=== PATIENT | male | born 1975 | race Caucasian/White ===

== ENCOUNTER 2019-01-02 15:38 | Outpatient (CLI) | payer OTHER ==
[2019-01-02 16:38] LABS: Hemoglobin 15.5 g/dL (14.0-18.0); Mean Corpuscular HGB CONC 32.9 g/dL (32.0-36.0); Mean Corpuscular Hemoglobin 29.5 pg (27.0-31.0); Mean Corpuscular Volume 89.7 fL (78.0-98.0); Mean Platelet Volume 8.6 fL (7.4-10.4); Platelet Count 210 thou/uL (130-400); RBC Distribution Width 12.3 % (11.5-14.5); Red Blood Cell (RBC) Count 5.25 mill/uL (4.70-6.10); White Blood Cell (WBC) Count 6.1 thou/uL (4.8-10.8)
[2019-01-02 17:05] LABS: Anion Gap 12 mmol/L (10-20); BUN (Urea Nitrogen) 16 mg/dL (8.9-20.6); Calc. Creatinine Clearance 0 mL/min (70-130); Calcium 9.4 mg/dL (7.8-10.44); Carbon Dioxide 26 mmol/L (22-29); Chloride 107 mmol/L (98-107); Estimated GFR-MDRD 71; Glucose 94 mg/dL (70-105); Potassium 4.1 mmol/L (3.5-5.1); Sodium 141 mmol/L (136-145)
== END 2019-01-02 15:39 | disposition home or self-care (01) ==
LOC: LABBT 15:38
PROVIDERS: ATTEND Neurological Surgery
DX: Z01.818 Encounter for other preprocedural examination (principal); M43.16 Spondylolisthesis, lumbar region
CPT/HCPCS: 80048; 85027; 93005; 93010

== ENCOUNTER 2019-01-07 05:56 | Observation (INO) | payer OTHER ==
[2019-01-02 15:54] VITALS: BMI 33.0
[2019-01-07] MEDS ORDERED: Sodium Chloride 0.9% 10 ML ONE (06:32)
[2019-01-07] MEDS ORDERED: Fentanyl 100 MCG/2 ML VIAL ONE ×4 (06:52→10:49)
[2019-01-07] MEDS ORDERED: PACU-Morphine 4MG/ML VIAL SLOW IVP PRN (09:07)
[2019-01-07] MEDS ORDERED: Ketorolac Tromethamine 30 MG/ML VIAL IVP PRN (09:07)
[2019-01-07] MEDS ORDERED: Promethazine HCl 25 MG/ML VIAL SLOW IVP PRN (09:07)
[2019-01-07] MEDS ORDERED: Promethazine HCl 25 MG/ML VIAL IM PRN ×2 (09:07→11:53)
[2019-01-07] MEDS ORDERED: HYDROmorphone 2 MG/ML VIAL SLOW IVP PRN (09:07)
[2019-01-07] MEDS ORDERED: Ondansetron HCl/PF 4 MG/2 ML Vial IVP PRN (09:07)
[2019-01-07] MEDS ORDERED: Morphine Sulfate 2 MG/ML SYRINGE SLOW IVP PRN (09:07)
[2019-01-07] MEDS ORDERED: Meperidine HCl/PF 25 MG/ML VIAL SLOW IVP PRN (09:07)
[2019-01-07] MEDS ORDERED: HYDROmorphone 2 MG/ML VIAL ONE (09:29)
[2019-01-07] MEDS ORDERED: Promethazine 25 MG TAB PO PRN (11:53)
[2019-01-07] MEDS ORDERED: HYDROcodone/Acetaminophen 10/325 mg Tablet PO PRN (11:53)
[2019-01-07] MEDS ORDERED: Promethazine HCl 12.5 MG SUPP PR PRN (11:53)
[2019-01-07] MEDS ORDERED: diphenhydrAMINE 50 MG/ML VIAL IVP PRN (11:53)
[2019-01-07] MEDS ORDERED: diphenhydrAMINE 25 MG CAP PO PRN (11:53)
[2019-01-07] MEDS ORDERED: Milk Of Magnesia 30 ML UDCUP PO PRN (11:53)
[2019-01-07] MEDS ORDERED: Ondansetron PF 4 MG/2 ML Vial IM PRN (11:53)
[2019-01-07] MEDS ORDERED: Morphine 4 MG/ML VIAL SLOW IVP PRN (11:53)
[2019-01-07] MEDS ORDERED: Mag-Al 1200 mg/1200 mg/30 ML UDCUP PO PRN (11:53)
[2019-01-07] MEDS ORDERED: traMADol HCl 50 MG TAB PO PRN ×2 (11:53)
[2019-01-07] MEDS: Sodium Chloride 0.9% 1,000 ML IV SCH (13:15)
[2019-01-07] MEDS: CEFAZOLIN 2 GM in Premix Bag 1 BAG IVPB SCH ×2 (14:39→20:02)
--- NOTE | 2019-01-07 14:47 | OP ---
DATE OF PROCEDURE: 01/07/2019 [employer] SEPARATOR: Martin Arvizu PA-C PROCEDURES PERFORMED: Right L4-L5 and L5-S1 laminectomy, facetectomy, foraminotomy, interbody arthrodesis, intervertebral biomechanical device, local morselized autograft, demineralized bone matrix, posterolateral arthrodesis, pedicle screw instrumentation, L5 and S1. DESCRIPTION OF PROCEDURE: The patient was brought to the operating room and intubated. He was rolled in the prone position on gel-filled chest rolls. An incision was made exposing L4 through S1 and level was confirmed by x-ray. We performed a right L4-L5 and right L5-S1 laminectomy, facetectomy, and foraminotomy and completely decompressing the neural elements. The disks were incised and debrided and the bony endplates of the disk space were then decorticated for the purpose of arthrodesis. An appropriate-sized intervertebral biomechanical PEEK device was then brought into the field, filled with demineralized bone matrix, local morselized autograft, and tapped in place securely at L4-L5 and L5-S1. Next, pedicle screws were placed at right L4, right L5, and right S1 using lateral fluoroscopic guidance. Positioning was confirmed by x-ray. The gricelda was secured between the screws, connected by nuts, which were final tightened. The wound was then extensively irrigated and MAC hemostasis was secured. A combination of demineralized bone matrix and local morselized autograft was laid over the left lamina and posterolateral surfaces for the purpose of arthrodesis. Vancomycin powder was applied and the wound was then closed in anatomic layers. Job ID: [id number]
[2019-01-07] MEDS ORDERED: Lidocaine 1% PF 5 ML VIAL ONE (16:01)
[2019-01-07] MEDS ORDERED: PHENYLEPHRINE-NS 100 MCG/ML 10 ML SYRINGE ONE (16:01)
[2019-01-07] MEDS ORDERED: Rocuronium Bromide 10 MG/ML (10ML VIAL) ONE (16:01)
[2019-01-07] MEDS ORDERED: PROPOFOL 200 MG/20 ML VIAL ONE (16:01)
[2019-01-07] MEDS ORDERED: Ondansetron PF 4 MG/2 ML Vial ONE (16:01)
[2019-01-07] MEDS ORDERED: Dexamethasone 20 MG/5 ML VIAL ONE (16:01)
[2019-01-07] MEDS ORDERED: Glycopyrrolate 0.2 MG/ML 5 ML SYRINGE ONE (16:01)
[2019-01-07] MEDS: tiZANidine HCl 4 MG TAB PO PRN ×2 (16:18→22:35)
[2019-01-07] MEDS: Tamsulosin HCl 0.4 MG CAP PO SCH (20:01)
[2019-01-07] MEDS: HYDROcodone/Acetaminophen 10/325 mg Tablet PO PRN (22:34)
[2019-01-08] MEDS: Sodium Chloride 0.9% 1,000 ML IV SCH (00:52)
[2019-01-08] MEDS: HYDROcodone/Acetaminophen 10/325 mg Tablet PO PRN (08:23)
[2019-01-08] MEDS: Tamsulosin HCl 0.4 MG CAP PO SCH (08:24)
[2019-01-08] MEDS: tiZANidine HCl 4 MG TAB PO PRN (08:28)
[2019-01-08 11:47] VITALS: BP 113/69; TEMP 98.1
--- NOTE | 2019-01-08 15:22 | DIS ---
DATE OF ADMISSION: 01/07/2019 DATE OF DISCHARGE: 01/08/2019 The patient is a 43-year-old male, postoperative day #1, status post L4 to S1 decompression and fusion. Following the surgery, he was transitioned to the Med/Surg floor, where his pain has been well-controlled with p.o. medications. He is tolerating a regular diet, and he is voiding appropriately. He has been up ambulating throughout the halls without any difficulty. He has a small amount of shadow on his dressing, but otherwise no significant incisional issues. This appears to have stopped. We will plan to dismiss the patient to home. I have discussed home care precautions. He has been provided with scripts for [place], Zanaflex, and Keflex and will follow up in 2 weeks. Job ID: [id number]
== END 2019-01-08 13:14 | disposition home or self-care (01) ==
LOC: SDC 05:56 → SURG B 09:18
PROVIDERS: ADMIT Neurological Surgery; ATTEND Neurological Surgery
PROC: 0SG1071 Fusion of 2 or more Lumbar Vertebral Joints with Autologous Tissue Substitute, Posterior Approach, Posterior Column, Open Approach (ICD-10-PCS; principal; 2019-01-07)
DX: M51.36 Other intervertebral disc degeneration, lumbar region (principal); M43.16 Spondylolisthesis, lumbar region; E78.5 Hyperlipidemia, unspecified; Z79.899 Other long term (current) drug therapy; Z98.890 Other specified postprocedural states
CPT/HCPCS: 76000; 96365; 96366; C1713; C1768; G0378; J0690; J1100; J1170; J2001; J2405; J2704; J3010; J3370; J3490

== ENCOUNTER 2019-01-22 10:58 | Outpatient (CLI) | payer OTHER ==
--- NOTE | 2019-01-22 11:29 | RAD ---
XR Lumbar Spine 2 Or 3 View History: M [age] spondylolisthesis of the lumbar region Comparison: None. Findings: No acute fracture or malalignment. Satisfactory appearance right posterior spinal fusion starkey rdware L4-S1 with good position discectomy cage. Paraspinous soft tissues are unremarkable. Impression: Satisfactory postoperative appearance.
== END 2019-01-22 10:59 | disposition home or self-care (01) ==
LOC: TBSIIMAG 10:58
PROVIDERS: ATTEND Neurological Surgery
DX: M43.16 Spondylolisthesis, lumbar region (principal); Z98.1 Arthrodesis status
CPT/HCPCS: 72100

== ENCOUNTER 2019-03-14 15:21 | Outpatient (CLI) | payer OTHER ==
--- NOTE | 2019-03-14 15:44 | RAD ---
LUMBAR SPINE SERIES 2 VIEWS: HISTORY: Followup of surgery. COMPARISON: 01/22/2019 study. FINDINGS: Left unilateral pedicle screws at L4, L5, and S1 are again noted with markers of disk implants within the confines of the disk levels. These changes appear stable. IMPRESSION: Stable postop change. POS: [facility]
== END 2019-03-14 15:22 | disposition home or self-care (01) ==
LOC: TBSIIMAG 15:21
PROVIDERS: ATTEND Neurological Surgery
DX: M51.36 Other intervertebral disc degeneration, lumbar region (principal); Z98.890 Other specified postprocedural states
CPT/HCPCS: 72100